=== PATIENT | female | born 1965 | race Caucasian/White ===

== ENCOUNTER 2017-05-01 07:22 | Emergency (ER) | payer BC ==
[2017-05-01 07:37] VITALS: BP 115/72
--- NOTE | 2017-05-01 08:02 | UC ---
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[employer] no pain/photophobia no visual complaints - History of Current Complaint Chief Complaint: UCEye Stated Complaint: BILATERAL EYE Time Seen by Provider: 05/01/17 07:46 Hx Obtained From: Patient Onset/Duration: Sudden Onset Timing: Constant Severity Initially: Mild Pain Intensity: 0 Pain Scale Used: 0-10 Numeric Location of Injury: Conjunctiva Aggravating Factor(s): Nothing Associated Signs And Symptoms: Positive: Drainage (Purulent) - Risk Factors Penetrating Injury Risk Factor: Negative Globe Rupture Risk Factors: Negative Acute Glaucoma Risk Factors: Negative Optic Artery Occlusion Risk Factors: Negative - Allergies/Home Medications Allergies/Adverse Reactions: Allergies Allergy/AdvReac Type Severity Reaction Status Date / Time No Known Allergies Allergy Verified 05/01/17 07:35 PMH/Surg Hx/FS Hx/Imm Hx Previously Healthy: Yes - Surgical History Surgical History: None - Family History Known Family History: Positive: Hypertension - Social History Alcohol Use: Occasionally Substance Use Type: None Smoking Status (MU): Never Smoked Tobacco Review of Systems Constitutional: Negative Skin: Negative Eyes: Drainage, Eye Redness ENT: Nasal Discharge Respiratory: Cough Cardiovascular: Negative Gastrointestinal: Negative Genitourinary: Negative Motor: Negative Neurovascular: Negative Musculoskeletal: Negative Neurological: Negative Psychological: Negative Is Patient Immunocompromised?: No All Other Systems Reviewed And Are Negative: Yes Physical Exam Triage Information Reviewed: Yes Appearance: Well-Appearing, No Pain Distress, Well-Nourished Vital Signs: Initial Vital Signs Temp 98.4 F 05/01/17 07:32 Pulse 73 05/01/17 07:32 Resp 16 05/01/17 07:32 BP 115/72 05/01/17 07:32 Pulse Ox 100 05/01/17 07:32 Vital Signs Reviewed: Yes Eyes: Positive: Conjunctiva Inflamed - R>L, Discharge - R>L ENT: Positive: Hearing grossly normal, Nasal congestion, Nasal drainage, Uvula midline. Negative: Tonsillar swelling, Tonsillar exudate, Trismus, Muffled voice, Hoarse voice, Sinus tenderness Neck: Positive: Supple, Nontender, No Lymphadenopathy Respiratory: Positive: Lungs clear, Normal breath sounds, No respiratory distress, No accessory muscle use Cardiovascular: Positive: RRR, No Murmur Musculoskeletal: Positive: ROM Intact, No Edema Neurological Exam: Normal Neurological: Positive: Alert Psychological Exam: Normal Skin Exam: Normal Eye Complaint Course/Dx - Differential Dx/Diagnosis Provider Diagnoses: bilateral conjunctivitis. viral URI Discharge - Discharge Plan Condition: Stable Disposition: HOME Prescriptions: Polymyx/Trimethoprim OPTH* [Polytrim OPHTH*] 1 - 2 drop BOTH EYES QID #1 btl Patient Education Materials: Conjunctivitis (ED) Forms: *Work Release Referrals: America Bee [Primary Care Provider] - If Needed Additional Instructions: you can also use ZADITOR eye drop (over the counter)
== END 2017-05-01 08:03 | disposition home or self-care (01) ==
LOC: UCCORT 07:22
DX: H10.9 Unspecified conjunctivitis (principal); J06.9 Acute upper respiratory infection, unspecified
CPT/HCPCS: 99202; G0463

== ENCOUNTER 2017-10-15 15:39 | Emergency (ER) | payer BC ==
[2017-10-15 16:05] VITALS: BP 122/77
--- NOTE | 2017-10-15 16:19 | UC ---
Skin Complaint HPI - HPI Summary HPI Summary: Pt c/o itchy, erythematous pruritc, blister rash that began 1-2 weeks ago. Pt has been gardening and believes she has been exposed to poison maria elena . rash is on trunk, lower extremities and neck. - History of Current Complaint Chief Complaint: UCRash Time Seen by Provider: 10/15/17 16:05 Stated Complaint: SKIN COMPLAINT Hx Obtained From: Patient ?: No Onset/Duration: Sudden Onset, Lasting Weeks, Still Present Skin Exposure Onset/Duration: Weeks Ago Timing: Constant Onset Severity: Mild Current Severity: Moderate Pain Intensity: 0 Location: Diffuse, Other - trunk, right side neck, bilateral extremities Character: Pruritus, Redness, Raised, Painful Aggravating Factor(s): Touch Alleviating Factor(s): Nothing Associated Signs & Symptoms: Positive: Rash, Tenderness Related History: Possible Reaction to: Environmental Exposure - Allergy/Home Medications Allergies/Adverse Reactions: Allergies Allergy/AdvReac Type Severity Reaction Status Date / Time No Known Allergies Allergy Verified 10/15/17 16:05 Review of Systems Constitutional: Negative Skin: Rash Eyes: Negative ENT: Negative Respiratory: Negative Cardiovascular: Negative Gastrointestinal: Negative Genitourinary: Negative Motor: Negative Neurovascular: Negative Musculoskeletal: Negative Neurological: Negative Psychological: Negative Is Patient Immunocompromised?: No All Other Systems Reviewed And Are Negative: Yes PMH/Surg Hx/FS Hx/Imm Hx Previously Healthy: Yes - Surgical History Surgical History: None - Family History Known Family History: Positive: Hypertension - Social History Occupation: Employed Full-time Lives: With Family Alcohol Use: Occasionally Substance Use Type: None Smoking Status (MU): Never Smoked Tobacco Have You Smoked in the Last Year: No Physical Exam Triage Information Reviewed: Yes Appearance: Well-Appearing Vital Signs: Initial Vital Signs Temp 98.9 F 10/15/17 16:01 Pulse 73 10/15/17 16:01 Resp 16 10/15/17 16:01 BP 122/77 10/15/17 16:01 Pulse Ox 100 10/15/17 16:01 Vital Signs Reviewed: Yes Eye Exam: Normal ENT Exam: Normal Dental Exam: Normal Neck exam: Normal Respiratory Exam: Normal Cardiovascular Exam: Normal Abdomen Description: Positive: Other: - rash on abdomen Musculoskeletal Exam: Normal Neurological Exam: Normal Psychological Exam: Normal Skin: Positive: rashes - vessicular, erythematous, trunk, bilateral lower extremities Course/Dx - Differential Diagnoses - Skin Complaint Differential Diagnoses: Poison Maria Elena, Poison Simpson - Diagnoses Provider Diagnoses: poison maria elena Discharge - Sign-Out/Discharge Documenting (check all that apply): Patient Departure - Discharge Plan Condition: Stable Disposition: HOME Prescriptions: predniSONE TAB* [Deltasone 10 MG TAB*] 30 mg PO DAILY #12 tab Patient Education Materials: Poison Maria Elena (ED) Referrals: America Bee [Primary Care Provider] - If Needed - Billing Disposition and Condition Condition: STABLE Disposition: Home Attestation Statement User Type: Provider - I was available for consult. This patient was seen by the FELICIA. The patient was not presented to, seen by, or examined by me. -Abhijit
== END 2017-10-15 16:26 | disposition home or self-care (01) ==
LOC: UCCORT 15:39
DX: L23.7 Allergic contact dermatitis due to plants, except food (principal)
CPT/HCPCS: 99212; G0463

== ENCOUNTER 2019-01-09 17:02 | Emergency (ER) | payer BC ==
--- OUTSIDE RECORDS SUMMARY | 2019-01-09 17:09 | XMS REPORT | Continuity of Care Document ---
:1965 External Reference #:[id number] Author Name America Bee NP Address [address] [place] [id number] Problems Active Problems Provider Date Vitamin D deficiency America Bee NP Onset: 12/28/2018 Mixed hyperlipidemia America Bee NP Onset: 12/28/2018 Social History Type Date Description Comments Sex Unknown ETOH Use Occasionally consumes alcohol Tobacco Use Start: Unknown Patient has never smoked Allergies, Adverse Reactions, Alerts Description No Known Drug Allergies Medications Active Medications SIG Qnty Indications Ordering Provider Date Multivitamin Gummies 2 by mouth every Unknown Adult day Chewtabs Immunizations CPT Code Status Date Vaccine Lot # [id number] Given 02/25/2010 Tdap (Adacel) Ages 7 And Above Only [id number] Given 10/26/2008 Tdap (Adacel) Ages 7 And Above Only Vital Signs Date Vital Result Comment 12/28/2018 3:09pm Weight 165.25 lb Heart Rate 76 /min BP Systolic 122 mmHg BP Diastolic 74 mmHg Respiratory Rate 16 /min Height 66 inches 5'6" SA,[employer]ER 12/28/18 BMI (Body Mass Index) 26.7 kg/m2 11/13/2015 2:00pm Weight 170.00 lb Heart Rate 64 /min BP Systolic 128 mmHg BP Diastolic 70 mmHg Respiratory Rate 18 /min Height 66 inches 5'6" 5'6 BMI (Body Mass Index) 27.4 kg/m2 Results Test Date Facility Test Result H/L Range Note Laboratory test 12/17/2018 [facility] Vitamin D 25 26 ng/mL Low 30-100 1 finding Hydroxy Lipid 12/17/2018 [facility] Cholesterol 230 mg/dL High 50-199 Triglycerides 66 mg/dL 30-200 HDL 74 mg/dL 35-85 2 Chol/ HDL Ratio 3.1 ratio Low 3.7-5.6 VLDL 13 mg/dL 2-29 LDL (Calc) 143 mg/dL High 20-99 3 Basic (BMP) 12/17/2018 [facility] Sodium 142 mmol/L 135-146 4 Potassium 4.1 mmol/L 3.5-5.2 Chloride# 104 mmol/L 97-110 5 Carbon Dioxide 30 mmol/L 24-34 Glucose 102 mg/dL 70-105 BUN 15 mg/dL 6-26 Creatinine 0.8 mg/dL 0.5-1.4 Calcium 9.4 mg/dL 8.5-10.5 6 Female Egfr 79 >60 7 Male Egfr 99 >60 8 Anion Gap 8 mmol/L 5-15 9 1 Clinical Guidelines for recommended serum 25(OH)Vitamin D Deficient at less than 20 ng/mL Insufficient at 20 to <30 ng/mL Sufficient at 30-100 ng/mL Toxicity at greater than 100 ng/mL 2 Per NCEP ATP III Guidelines: Results lower than 40 mg/dL are suggestive of increased risk for coronary artery disease. Results > or = to 60 mg/dL are considered a negative risk factor. 3 Per NCEP ATP III Guidelines: Normal Population <130 Patients with medical conditions: CHD/DM Optimal: <100 Borderline high: 130-159 High: 160-189 Very high: >189 4 Updated reference range on new analyzer 5 Updated reference range on new analyzer 6 Updated reference range 07-22-2018 7 Concerning GFR Guidelines for Americans: Normal function or mild renal disease, if clinically at risk: >/= 60 mL/min Moderately decreased: 30-59 Severely decreased: 15-29 Renal failure: <15 There is reduced accuracy above 60ml/min/1.73 m squared, but the numeric value may be clinically useful in the near 60 range 8 Concerning GFR Guidelines: Normal function or mild renal disease, if clinically at risk: >/= 60 mL/min Moderately decreased: 30-59 Severely decreased: 15-29 Renal failure: <15 There is reduced accuracy above 60ml/min/1.73 m squared, but the numeric value may be clinically useful in the near 60 range Glomerular Filtration Rate (GFR) is estimated based on the CKD-EPI equation, which assumes a steady state for creatinine as recommended by the National Kidney Disease Education Program in conjunction with the National Institutes of Health and the National Kidney Foundation. Clinical conditions in which it may be necessary to measure GFR by using clearance methods include extremes of age and body size, severe malnutrition or obesity, diseases of skeletal muscle, paraplegia or quadriplegia, vegetarian diet, rapidly changing kidney function, and calculation of the dose of potentially toxic drugs that are excreted by the kidneys. 9 Updated Reference Range 2-2017 Procedures Date Code Description Status 05/21/2017 [id number] Mammogram Completed Medical Devices Description No Information Available Encounters Description No Information Available Assessments Date Code Description Provider 12/28/2018 Z00.00 Encounter for general adult medical America Bee, [employer] examination without abnormal findings 12/28/2018 E78.2 Mixed hyperlipidemia America Bee, [employer] 12/28/2018 E55.9 Vitamin D deficiency, unspecified America Bee, [employer] 12/28/2018 Z13.31 Encounter for screening for depression America Bee [employer] 12/28/2018 Z12.31 Encounter for screening mammogram for Digiovanna, America , [employer] malignant neoplasm of breast 12/28/2018 Z12.11 Encounter for screening for malignant JunenaEdgaria , [employer] neoplasm of colon 12/28/2018 Z11.59 Encounter for screening for other viral Edgar Beeia, [employer] diseases 12/28/2018 Z68.26 Body mass index (BMI) 26.0-26.9, adult America Bee [employer] 12/17/2018 E55.9 Vitamin D deficiency, unspecified Jimmy Bee MD 12/17/2018 E55.9 Vitamin D deficiency, unspecified Schedule, Laboratory 12/17/2018 E78.2 Mixed hyperlipidemia Jimmy Bee MD 12/17/2018 E78.2 Mixed hyperlipidemia Schedule, Laboratory 12/17/2018 E55.9 Vitamin D deficiency, unspecified [facility] 12/17/2018 E78.2 Mixed hyperlipidemia [facility] Plan of Treatment Future Appointment(s):12/23/2019 7:45 am - Schedule, Laboratory at [facility]2019 11:00 am - Nadia Dominguez [employer] at [facility]12/28/2018 - America Bee, NPZ00.00 Encounter for general adult medical examination without abnormal findingsComments:Continue current diet and exercise.Recommend Vit. D supplement to 5560-3879 units daily.Continue FYEs with Dr. Kincaid. Tdap due 2020Recommend Shingrix and annual flu vaccineFollow up:Please get most recent pap result from Dr. Kincaid's office 1 year for PE(? FYE with pap) with Nadia fasting labs 1 week ckytsS03.2 Mixed hyperlipidemiaNew Labs:Lipid, Scheduled: Comments:Limit fat and cholesterol in dietContinue weight bearing [id number] Vitamin D deficiency, unspecifiedNew Labs:Vit D 25Oh, Scheduled: 12/23/19Comments:Start supplement 9150-0441 units [id number] Encounter for screening for [id number] Encounter for screening mammogram for malignant neoplasm of breastNew Xrays:Ultrasound Breast Unilateral Realtime Comp W/[employer] Axil, Ordered: 12/28/18Mammogram Screening, Bilateral Incl CAD When Performe , Ordered: 12/28/18Z12.11 Encounter for screening for malignant neoplasm of colonComments:Agrees to cologuard.Z11.59 Encounter for screening for other viral diseasesNew Labs:Hepatitis C Virus Antibody, Scheduled: 12/23/19Vit D 25Oh , Scheduled: 12/23/19Basic (BMP), Scheduled: 12/23/19Lipid, Scheduled: Comments:Discussed potential benefits of Hep C screen.Agrees to screening with next labs.Z68.26 Body mass index (BMI) 26.0-26.9, adultComments:Continue healthy well balanced diet with routine exercise Functional Status Description No Information Available Mental Status Description No Information Available Referrals Description No Information Available
--- NOTE | 2019-01-09 17:29 | UC ---
Bite Injury/Animal HPI - HPI Summary HPI Summary: 53-year-old woman comes in with a chief complaint of a tick bite to her left lower leg. Just prior to arrival she found a tick attached on her left medial calf. Pulled it off with her fingers. The fevers no chills no rash feels well otherwise. Not sure how long its been in her. - History of Current Complaint Stated Complaint: TICK BITE Time Seen by Provider: 01/09/19 17:07 - Allergies/Home Medications Allergies/Adverse Reactions: Allergies Allergy/AdvReac Type Severity Reaction Status Date / Time No Known Allergies Allergy Verified 01/09/19 17:29 Home Medications: Home Medications Cholecalciferol TAB* [Vitamin D TAB*] 2,000 units PO DAILY 01/09/19 [History Confirmed 01/09/19] PMH/Surg Hx/FS Hx/Imm Hx Previously Healthy: Yes - Surgical History Surgical History: None - Family History Known Family History: Positive: Hypertension - Social History Alcohol Use: Occasionally Substance Use Type: None Smoking Status (MU): Never Smoked Tobacco Have You Smoked in the Last Year: No Review of Systems All Other Systems Reviewed And Are Negative: Yes Constitutional: Positive: Negative Skin: Positive: Other - SEE HPI Eyes: Positive: Negative ENT: Positive: Negative Respiratory: Positive: Negative Cardiovascular: Positive: Negative Gastrointestinal: Positive: Negative Motor: Positive: Negative Neurovascular: Positive: Negative Musculoskeletal: Positive: Negative Neurological: Positive: Negative Psychological: Positive: Negative Is Patient Immunocompromised?: No Physical Exam Triage Information Reviewed: Yes Appearance: Well-Appearing, No Pain Distress, Well-Nourished Vital Signs Reviewed: Yes Eye Exam: Normal Eyes: Positive: Conjunctiva Clear Neck: Positive: Supple Respiratory: Positive: No respiratory distress Musculoskeletal: Positive: Strength Intact, ROM Intact Neurological: Positive: Alert Psychological: Positive: Age Appropriate Behavior Skin Exam: Normal Bite Injury Course/Dx - Differential Dx/Diagnosis Provider Diagnosis: Tick bite of lower leg Discharge ED - Sign-Out/Discharge Documenting (check all that apply): Patient Departure All imaging exams completed and their final reports reviewed: No Studies - Discharge Plan Condition: Stable Disposition: HOME Patient Education Materials: Tick Bite (ED) Referrals: America Bee [Primary Care Provider] - Additional Instructions: FOLLOW UP WITH YOUR DOCTOR IF NOT COMPLETELY IMPROVED. GET REEVALUATED SOONER IF NOT IMPROVING OR YOUR CONDITION WORSENS; BULLS EYE RASH SYMPTOMS OF LYME DISEASE OR ANY QUESTIONS OR CONCERNS. - Billing Disposition and Condition Condition: STABLE Disposition: Home
[2019-01-09 17:36] VITALS: BP 127/71
== END 2019-01-09 17:41 | disposition home or self-care (01) ==
LOC: UCCORT 17:02
DX: S80.862A Insect bite (nonvenomous), left lower leg, initial encounter (principal); W57.XXXA Bitten or stung by nonvenomous insect and other nonvenomous arthropods, initial encounter; Y92.9 Unspecified place or not applicable
CPT/HCPCS: 99212; G0463